=== PATIENT | male | born 1985 | race Caucasian/White ===

== ENCOUNTER 2016-11-09 18:40 | Emergency (ER) | payer OTHER ==
[~2016-11-09] VITALS: Ht 177.8 cm; Wt 64.0 kg
[~2016-11-09 18:40] MED LIST: CEPH500C3 PO
[2016-11-09 18:56] VITALS: BP 136/82; PULSE 95; RESP 20; TEMP 98.1; O2SAT 99
[2016-11-09] MEDS ORDERED: SODIUM CHLOR 0.9% 1000 ML INJ 1,000 ML IV ONE (18:58)
[2016-11-09] MEDS ORDERED: SODIUM CHLORIDE 0.9% FLUSH 10 ML FLUSH IVF PRN (19:00)
[2016-11-09] MEDS ORDERED: TETANUS/DIPHTHERIA TOXOID ADULT 0.5 ML VIAL IM ONE (19:00)
[2016-11-09] MEDS ORDERED: LIDOCAINE 1%/EPINEPHrine 1:100,000 SOLN 20 ML VIAL INFIL ONE (19:00)
--- NOTE | 2016-11-09 19:01 | PD ---
HPI Chief Complaint: Fall Time Seen by Provider: 18:50 Travel History International Travel<30 days: No Contact w/Intl Traveler<30days: No Traveled to known affect area: No History of Present Illness HPI 31-year-old male with no significant past medical history presents via EMS for evaluation of syncope. The patient reports that he was at work at [employer] today, working for several hours and tired, when he walked into the cooler. He woke up on the ground. This was not a witnessed fall. There is no reported seizure activity. There is no tongue biting or incontinence of urine or stool. No history of seizure. He felt tired but otherwise asymptomatic prior to the fall. He had no presyncopal lightheadedness or dizziness. He has a small laceration on the right parietal scalp which is somewhat painful. He denies any generalized headache, blurred vision, nausea or vomiting, neck pain, chest pain or shortness of breath, lightheadedness or dizziness. Denies any drug or alcohol use. Last tetanus vaccination unknown. No other complaints. PFSH Past Medical History Autoimmune Disease: No Cancer: No Cardiovascular Problems: No Endocrine: No Immune Disorder: No Musculoskeletal: No Neurologic: No Psychiatric: No Reproductive: No Respiratory: No Past Surgical History Other Surgery: No Social History Alcohol Use: Yes Tobacco Use: Yes (1 pk /day) Substance Use: No Allergies-Medications (Allergen,Severity, Reaction): Coded Allergies: Common Ragweed (Verified Allergy, Mild, 11/09/16) Dust (Verified Allergy, Mild, Sneezing, 11/09/16) Molds and Smuts (Verified Allergy, Unknown, Sneezing, 11/09/16) Reported Meds & Prescriptions Reported Meds & Active Scripts Active No Active Prescriptions or Reported Medications Review of Systems Except as stated in HPI: all other systems reviewed are Neg Physical Exam Narrative GENERAL: Well-developed well-nourished male in no acute distress sitting upright in hospital bed. Cervical collar was removed. SKIN: Warm and dry. 1.5 cm right parietal scalp laceration. No bony step-offs. HEAD: Skin as noted above. Normocephalic. EYES: Pupils equal and round. No scleral icterus. No injection or drainage. ENT: No nasal bleeding or discharge. Mucous membranes pink and moist. NECK: Trachea midline. No JVD. CARDIOVASCULAR: Regular rate and rhythm. No murmur appreciated. RESPIRATORY: No accessory muscle use. Clear to auscultation. Breath sounds equal bilaterally. GASTROINTESTINAL: Abdomen soft, non-tender, nondistended. Hepatic and splenic margins not palpable. MUSCULOSKELETAL: No obvious deformities. There is no tenderness to palpation along the cervical or thoracic or lumbar midline spine. Full range of motion of the neck with no discomfort. NEUROLOGICAL: Awake and alert. No obvious cranial nerve deficits. Motor grossly within normal limits. Normal speech. PSYCHIATRIC: Appropriate mood and affect; insight and judgment normal. Data Data Last Documented VS Vital Signs Date Time Temp Pulse Resp B/P Pulse Ox O2 Delivery O2 Flow Rate FiO2 11/09/16 18:56 98.1 95 20 136/82 99 Orders Electrocardiogram (11/09/16 18:58) Complete Blood Count With Diff (11/09/16 18:58) Comprehensive Metabolic Panel (11/09/16 18:58) Magnesium (Mg) (11/09/16 18:58) Ckmb (Isoenzyme) Profile (11/09/16 18:58) Ct Brain W/O Iv Contrast(Rout) (11/09/16 18:58) Ecg Monitoring (11/09/16 18:58) Iv Access Insert/Monitor (11/09/16 18:58) Oximetry (11/09/16 18:58) Sodium Chloride 0.9% Flush (Ns Flush) (11/09/16 19:00) Sodium Chlor 0.9% 1000 Ml Inj (Ns 1000 M (11/09/16 18:58) Tetanus/Diphtheria Tox Adult (Tetanus/Di (11/09/16 19:00) Lidocai-Epi 1%-1:100,000 Inj (Xylocaine- (11/09/16 19:00) CKMB (11/09/16 19:05) CKMB% (11/09/16 19:05) Labs Laboratory Tests Test 11/09/16 19:05 White Blood Count 6.8 TH/MM3 Red Blood Count 5.09 MIL/MM3 Hemoglobin 15.9 GM/DL Hematocrit 45.6 % Mean Corpuscular Volume 89.5 FL Mean Corpuscular Hemoglobin 31.1 PG Mean Corpuscular Hemoglobin 34.8 % Concent Red Cell Distribution Width 13.0 % Platelet Count 177 TH/MM3 Mean Platelet Volume 9.2 FL Neutrophils (%) (Auto) 57.2 % Lymphocytes (%) (Auto) 32.2 % Monocytes (%) (Auto) 7.7 % Eosinophils (%) (Auto) 2.1 % Basophils (%) (Auto) 0.8 % Neutrophils # (Auto) 3.9 TH/MM3 Lymphocytes # (Auto) 2.2 TH/MM3 Monocytes # (Auto) 0.5 TH/MM3 Eosinophils # (Auto) 0.1 TH/MM3 Basophils # (Auto) 0.1 TH/MM3 CBC Comment DIFF FINAL Differential Comment Sodium Level 136 MEQ/L Potassium Level 3.4 MEQ/L Chloride Level 100 MEQ/L Carbon Dioxide Level 26.8 MEQ/L Anion Gap 9 MEQ/L Blood Urea Nitrogen 9 MG/DL Creatinine 1.16 MG/DL Estimat Glomerular Filtration 74 ML/MIN Rate Random Glucose 70 MG/DL Calcium Level 9.3 MG/DL Magnesium Level 2.0 MG/DL Total Bilirubin 0.6 MG/DL Aspartate Amino Transf 34 U/L (AST/SGOT) Alanine Aminotransferase 41 U/L (ALT/SGPT) Alkaline Phosphatase 66 U/L Total Creatine Kinase 137 U/L Creatine Kinase MB 0.8 NG/ML Total Protein 7.4 GM/DL Albumin 3.9 GM/DL [facility] Medical Decision Making Medical Screen Exam Complete: Yes Emergency Medical Condition: Yes Medical Record Reviewed: Yes Differential Diagnosis Closed head injury, intracranial hemorrhage, scalp laceration, skull fracture, arrhythmia, electrolyte abnormality, dehydration, seizure, hypoglycemia Narrative Course 31-year-old male presents after a likely syncopal event at work this evening. He is complaining of mild pain at the site of the right parietal scalp laceration. He is otherwise without complaint. Plan is for basic lab work, EKG , ECG monitoring pulse oximetry, CT of the brain. The laceration will be repaired with román, he verbally consents. Tetanus status updated. He will be given IV fluids. Laboratory reveals a potassium of 3.4 otherwise unremarkable. The patient has been stable during his hospital stay with no acute complaints. He was able to stand without any dizziness or lightheadedness. He is stable for discharge. Procedures Procedure Narrative LACERATION LOCATION: Right parietal scalp LENGTH: 1 cm NUMBER OF STITCHES/ROMÁN: 3 REPAIR: The area of the laceration was prepped with Betadine and sterilely draped. The laceration was infiltrated with 1% lidocaine with epinephrine. The wound was copiously irrigated and explored without evidence of foreign body , tendon injury or neurovascular injury. The wound was closed using román. This was a single layer repair. A sterile dressing was applied. The patient was advised to keep the dressing clean and dry. Patient tolerated the procedure well. Diagnosis Primary Impression: Closed head injury Qualified Code: S09.90XA - Closed head injury, initial encounter Additional Impressions: Scalp laceration Qualified Code: S01.01XA - Scalp laceration, initial encounter Syncope Qualified Code: R55 - Syncope, unspecified syncope type Additional Instructions: Wash with soap and water and apply antibiotic cream daily. Stay well hydrated well-nourished. Return in 7-10 days for staple removal. Med/Other Pt SpecificInfo: No Change to Meds, Wound Care Scripts No Active Prescriptions or Reported Meds Disposition: 01 DISCHARGE HOME Condition: Stable Enoc Jurado Nov 09, 2016 19:01
--- NOTE | 2016-11-09 19:18 | RADRPT ---
EXAM DATE/TIME: 11/09/2016 19:08 [facility] COMPARISON: CT BRAIN W/O CONTRAST, August 25, 2014, 9:18. INDICATIONS : Trauma, hit head. Laceration to right side forehead. Patient does not remember the incident; possibl e syncopal episode. RADIATION DOSE: 34.86 CTDIvol (mGy) MEDICAL HISTORY : None SURGICAL HISTORY : None. ENCOUNTER: Initial ACUITY: 1 day PAIN SCALE: 0/10 LOCATION: cranial TECHNIQUE: Multiple contiguous axial images were obtained of the head. Using automated exposure control and adj ustment of the mA and/or kV according to patient size, radiation dose was kept as low as reasonably a chievable to obtain optimal diagnostic quality images. DICOM format image data is available electro nically for review and comparison. FINDINGS: CEREBRUM: The ventricles are normal for age. No evidence of midline shift, mass lesion, hemorrhage or acute in farction. No extra-axial fluid collections are seen. POSTERIOR FOSSA: The cerebellum and brainstem are intact. The 4th ventricle is midline. The cerebellopontine angle i s unremarkable. EXTRACRANIAL: The visualized portion of the orbits is intact. SKULL: Soft tissue injury to the right mid convexity frontoparietal region with several flecks of gas and wi thout radiopaque foreign body. The calvaria is intact. No evidence of skull fracture. CONCLUSION: No acute findings in the brain. No skull fracture. Ronald Mayes MD on November 09, 2016 at 19:14 Board Certified Radiologist. This report was verified electronically.
[2016-11-09 19:44] LABS: ALT (GPT) 41 U/L (12-78); ANION GAP 9 MEQ/L (5-15); AST (GOT) 34 U/L (15-37); BICARBONATE 26.8 MEQ/L (21.0-32.0); BLOOD UREA NITROGEN 9 MG/DL (7-18); CHLORIDE 100 MEQ/L (98-107); GLOMERULAR FILTRATION RATE 74 ML/MIN (>89); POTASSIUM 3.4 MEQ/L (3.5-5.1); SODIUM (NA) 136 MEQ/L (136-145)
[2016-11-09 19:46] LABS: AUTOMATED NEUTROPHIL # 3.9 TH/MM3 (1.8-7.7); BASOPHIL # 0.1 TH/MM3 (0-0.2); BASOPHIL % 0.8 % (0.0-2.0); EOSINOPHIL # 0.1 TH/MM3 (0-0.4); EOSINOPHIL % 2.1 % (0.0-4.0); HEMATOCRIT 45.6 % (39.0-51.0); HEMO FLAGS DIFF FINAL; LYMPH % 32.2 % (9.0-44.0); LYMPHOCYTE # 2.2 TH/MM3 (1.0-4.8); MEAN CELL VOLUME 89.5 FL (80.0-100.0); MEAN CORPUSCULAR HEMOGLOBIN 31.1 PG (27.0-34.0); MEAN CORPUSCULAR HGB CONC 34.8 % (32.0-36.0); MONO % 7.7 % (0.0-8.0); NEUT % 57.2 % (16.0-70.0); PLATELET COUNT 177 TH/MM3 (150-450); RED BLOOD COUNT 5.09 MIL/MM3 (4.50-5.90); WHITE BLOOD COUNT 6.8 TH/MM3 (4.0-11.0)
[2016-11-09 19:47] LABS: ALKALINE PHOSPHATASE 66 U/L (45-117); CREATINE KINASE 137 U/L (39-308); TOTAL BILIRUBIN ADULT 0.6 MG/DL (0.2-1.0)
[2016-11-09 20:02] LABS: CKMB 0.8 NG/ML (0.5-3.6)
[2016-11-09] MEDS ORDERED: POTASSIUM CHLORIDE 20 MEQ CONTROLLED RELEASE TAB PO ONE (20:15)
--- NOTE | 2016-11-10 16:05 | EKG ---
Date Performed: 11/09/2016 Time Performed: 19:25:33 PTAGE: 31 years EKG: VERTICAL QRS AXIS PROBABLY WITHIN NORMAL LIMITS FOR AGE NO PREVIOUS TRACING BORDERLINE ECG NO PREVIOUS TRACING DOCTOR: Edmond Buckley Interpretating Date/Time 11/10/2016 16:04:22
== END 2016-11-09 20:25 | disposition home or self-care (01) ==
LOC: NEPC 18:40
DX: R55 Syncope and collapse (principal); S01.01XA Laceration without foreign body of scalp, initial encounter; W18.30XA Fall on same level, unspecified, initial encounter
CPT/HCPCS: 12001; 70450; 80053; 82550; 82552; 83735; 85025; 90471; 90714; 93005; 99285; J7030